=== PATIENT | female | born 1980 | race Caucasian/White ===

== ENCOUNTER 2018-11-29 14:29 | Emergency (ER) | payer OTHER ==
[~2018-11-29] VITALS: Ht 170.2 cm; Wt 72.6 kg
--- NOTE | 2018-11-29 15:20 | EKG ---
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 Electronically Signed On 12-01-2018 9:56:53 CDT by Deandre Rodriguez
[2018-11-29] MEDS ORDERED: ONDANSETRON PF 4 MG/2 ML VIAL. IV ONE (16:00)
[2018-11-29] MEDS ORDERED: MORPHINE SULFATE 4 MG/ML VIAL. IV ONE (16:00)
--- NOTE | 2018-11-29 16:04 | PHYS DOC ---
Past Medical History Past Medical History: GERD, Other Additional Past Medical Histor: CEREBRAL PALSY Past Surgical History: Tubal ligation, Other Additional Past Surgical Histo: GASTRIC SLEEVE Alcohol Use: None Drug Use: None Adult General Chief Complaint Chief Complaint: CHEST PAIN HPI HPI patient is a 38-year-old female who presents to the emergency department for evaluation. She states that yesterday she began experiencing some sharp central chest pain and some mid back pain, which acutely worsened earlier in the day today. The pain did radiate up towards her neck as well. She denies any numbness or weakness, or significant shortness of breath, but does report pain worse with certain position changes as well as movements. She denies any dizziness or lightheadedness, numbness or weakness. She states she did have some pain in her calves bilaterally couple of weeks ago while doing some physical activity, but this has resolved. He does not have any unilateral calf pain. She does not use contraceptive pills. Patient is PERC/Wells negative. HEART score zero. Review of Systems Review of Systems Constitutional: Denies fever or chills [] Eyes: Denies change in visual acuity, redness, or eye pain [] HENT: Denies nasal congestion or sore throat [] Respiratory: Denies cough or shortness of breath [] Cardiovascular: No additional information not addressed in HPI [] GI: Denies abdominal pain, nausea, vomiting, bloody stools or diarrhea [] : Denies dysuria or hematuria [] Musculoskeletal: Denies back pain or joint pain [] Integument: Denies rash or skin lesions [] Neurologic: Denies headache, focal weakness or sensory changes [] Endocrine: Denies polyuria or polydipsia [] All other systems were reviewed and found to be within normal limits, except as documented in this note. Current Medications Current Medications Current Medications Medications (Trade) Dose Ordered Sig/Ehsan Start Time Stop Time Status Last Admin Dose Admin Info (CONTRAST GIVEN -- Rx MONITORING) 1 each PRN DAILY PRN 11/29/18 16:45 12/01/18 16:44 Iohexol (Omnipaque 350 Mg/ml) 90 ml 1X ONCE 11/29/18 16:45 11/29/18 16:46 DC 11/29/18 16:52 90 ML Morphine Sulfate (Morphine Sulfate) 4 mg 1X ONCE 11/29/18 16:00 11/29/18 16:01 DC 11/29/18 16:00 4 MG Ondansetron HCl (Zofran) 4 mg 1X ONCE 11/29/18 16:00 11/29/18 16:01 DC 11/29/18 16:00 4 MG Allergies Allergies Allergies Coded Allergies Type Severity Reaction Last Updated Verified gabapentin Allergy Unknown 11/29/18 Yes hydrocodone Allergy Unknown 11/29/18 Yes Physical Exam Physical Exam PHYSICAL EXAM: CONSTITUTIONAL: Well developed, well nourished HEAD: normocephalic, atraumatic EENT: PERRL, EOMI. Conjunctivae normal color, sclerae non-icteric; moist mucous membranes. NECK: Supple, non-tender; no meningismus. LUNGS: Lungs CTA, breathing even and unlabored. Normal air movement. HEART: Regular rate and rhythm, no murmur CHEST: No deformity; non-tender , there is no reproducible tenderness to palpation to the chest wall or back. ABDOMEN: The abdomen is soft, and non-tender, no masses or bruits. EXTREM: Normal ROM; no deformity, no calf tenderness. Normal pulses palpable in all extremities. There is no pedal edema. SKIN: No rash; no diaphoresis NEURO: Alert; normal speech and cognition; CN's grossly intact; strength grossly intact without focal deficit. BACK: No CVA TTP. Current Patient Data Vital Signs Vital Signs Date Time Temp Pulse Resp B/P (MAP) Pulse Ox O2 Delivery O2 Flow Rate FiO2 11/29/18 16:00 16 11/29/18 14:30 98.6 79 129/82 (98) 100 Room Air 98.6 Lab Values Laboratory Tests Test 11/29/18 14:45 White Blood Count 5.7 x10^3/uL (4.0-11.0) Red Blood Count 4.42 x10^6/uL (3.50-5.40) Hemoglobin 11.0 g/dL (12.0-15.5) L Hematocrit 34.4 % (36.0-47.0) L Mean Corpuscular Volume 78 fL (79-100) L Mean Corpuscular Hemoglobin 25 pg (25-35) Mean Corpuscular Hemoglobin Concent 32 g/dL (31-37) Red Cell Distribution Width 15.6 % (11.5-14.5) H Platelet Count 286 x10^3/uL (140-400) Neutrophils (%) (Auto) 66 % (31-73) Lymphocytes (%) (Auto) 23 % (24-48) L Monocytes (%) (Auto) 7 % (0-9) Eosinophils (%) (Auto) 4 % (0-3) H Basophils (%) (Auto) 1 % (0-3) Neutrophils # (Auto) 3.8 x10^3uL (1.8-7.7) Lymphocytes # (Auto) 1.3 x10^3/uL (1.0-4.8) Monocytes # (Auto) 0.4 x10^3/uL (0.0-1.1) Eosinophils # (Auto) 0.2 x10^3/uL (0.0-0.7) Basophils # (Auto) 0.0 x10^3/uL (0.0-0.2) D-Dimer (Faviola) 0.55 ug/mlFEU (0.00-0.50) H Sodium Level 142 mmol/L (136-145) Potassium Level 3.6 mmol/L (3.5-5.1) Chloride Level 106 mmol/L (98-107) Carbon Dioxide Level 23 mmol/L (21-32) Anion Gap 13 (6-14) Blood Urea Nitrogen 10 mg/dL (7-20) Creatinine 0.9 mg/dL (0.6-1.0) Estimated GFR (Cockcroft-Gault) 70.8 BUN/Creatinine Ratio 11 (6-20) Glucose Level 88 mg/dL (70-99) Calcium Level 9.1 mg/dL (8.5-10.1) Total Bilirubin 0.8 mg/dL (0.2-1.0) Aspartate Amino Transferase (AST) 14 U/L (15-37) L Alanine Aminotransferase (ALT) 13 U/L (14-59) L Alkaline Phosphatase 69 U/L (46-116) Troponin I Quantitative < 0.017 ng/mL (0.000-0.055) RE-Soy-A-Type Natriuretic Peptide 42 pg/mL (0-124) Total Protein 7.6 g/dL (6.4-8.2) Albumin 4.1 g/dL (3.4-5.0) Albumin/Globulin Ratio 1.2 (1.0-1.7) Lipase 410 U/L (73-393) H Laboratory Tests 11/29/18 14:45 Laboratory Tests 11/29/18 14:45 EKG EKG [Normal sinus rhythm with a normal rate, normal axis, normal intervals, there are no acute ischemic ST/T changes.], Repeat EKG at 5:30 PM shows no changes. Radiology/Procedures Radiology/Procedures PROCEDURE: PORTABLE CHEST 1V EXAM: Chest, single view. HISTORY: Chest pain. COMPARISON: None. FINDINGS: A frontal view of the chest is obtained. There is no infiltrate, pleural effusion or pneumothorax. The heart is normal in size. IMPRESSION: No acute pulmonary finding. [PROCEDURE: CT ANGIOGRAPHY CHEST ABDOMEN CT ANGIOGRAPHY CHEST ABDOMEN Indication: CHEST AND BACK PAIN SINCE LAST NIGHT, EVAL FOR DISSECTION PER ORDER, [id number] 90ML, NO PRIORS Exposure: One or more of the following individualized dose reduction techniques were utilized for this examination: 1. Automated exposure control 2. Adjustment of the mA and/or kV according to patient size 3. Use of iterative reconstruction technique. TECHNIQUE: Standard imaging obtained before and after intravenous contrast. MIP reconstructions were obtained. Urgent interpretation reporting was requested. Comparison: None are available. CHEST: Mild pulsatility artifact at the ascending aorta. No evidence of aortic dissection. The proximal great vessels are patent. The main central pulmonary arteries are grossly patent. No significant lymph node enlargement. No pericardial effusion. Partially seen thyroid is symmetric. No pleural effusion. Lungs appear clear. Mild degenerative spondylosis. ABDOMEN: The aorta is nonaneurysmal. No evidence of dissection. The celiac axis and superior mesenteric artery are grossly patent. Renal arteries are patent. There may be an accessory renal artery arising from the distal aorta, just above the bifurcation, extending to the kidney. Inferior mesenteric artery is patent. Evaluation of solid viscera, and GI tract is limited by the protocol. Liver is not significantly enlarged. Spleen heterogeneity likely due to the bolus timing. Pancreas difficult to delineate from adjacent unopacified bowel, no definite abnormality. No adrenal mass. Kidneys demonstrate symmetric enhancement without hydronephrosis. Gallbladder surgically absent. No significant lymph node enlargement in the abdomen. No significant distention of abdominal bowel loops. Compression fracture deformity of what appears to be L1 with vertebroplasty cement. Mild retropulsion slightly indents the thecal sac particularly on the right. Note there may be transitional anatomy at the lumbosacral junction. IMPRESSION: No evidence of thoracic or abdominal aortic aneurysm or dissection.] Course & Med Decision Making Course & Med Decision Making Pertinent Labs and Imaging studies reviewed. (See chart for details) []5:55 PM: The patient's condition remains stable. I discussed test results with the patient, the uncertain etiology of her diagnosis, the need for close GI follow-up and return precautions. GI etiology is suspected. This might pancreatitis, although her lipase elevation is mild. She denies alcohol use. She states she has had heartburn in the past but stated that this felt different. Gastritis is another diagnostic possibility. Dragon Disclaimer Dragon Disclaimer This electronic medical record was generated, in whole or in part, using a voice recognition dictation system. Departure Departure Impression: Primary Impression: Atypical chest pain Disposition: 01 HOME, SELF-CARE Condition: STABLE Referrals: JOE MCCULLOUGH MD Patient Instructions: Acute Pancreatitis, Chest Pain (Nonspecific), Clear Liquid Diet, Gastritis, Adult Additional Instructions: Antacids, such as Maalox or Mylanta might help improve your symptoms if this is stomach related. It is important that you obtain close follow-up for further evaluation and diagnostic testing, as the exact etiology of her symptoms is unclear at this time. If symptoms persist or worsen, it is important that he return to the emergency department for further evaluation. Scripts Acetaminophen With Codeine (TYLENOL WITH CODEINE #3 TABLET) 1 Each Tablet 1 TAB PO PRN Q6HRS PRN for PAIN, #15 TAB Prov: ELIN BOYLE MD 11/29/18 ELIN BOYLE MD November 29, 2018 16:04
[2018-11-29 16:08] LABS: BASO % 1 % (0-3); EOS # 0.2 x10^3/uL (0.0-0.7); EOS % 4 % (0-3); HEMATOCRIT 34.4 % (36.0-47.0); LYMPH # 1.3 x10^3/uL (1.0-4.8); LYMPH % 23 % (24-48); MEAN CORPUSCULAR HEMOGLOBIN 25 pg (25-35); MEAN CORPUSCULAR HGB CONC 32 g/dL (31-37); MEAN CORPUSCULAR VOLUME 78 fL (79-100); MONO # 0.4 x10^3/uL (0.0-1.1); MONO % 7 % (0-9); NEUT # 3.8 x10^3uL (1.8-7.7); NEUT % 66 % (31-73); PLATELET COUNT 286 x10^3/uL (140-400); RED BLOOD COUNT 4.42 x10^6/uL (3.50-5.40); RED CELL DISTRIBUTION WIDTH 15.6 % (11.5-14.5); WHITE BLOOD COUNT 5.7 x10^3/uL (4.0-11.0)
[2018-11-29 16:23] LABS: CALCIUM 9.1 mg/dL (8.5-10.1); CREATININE 0.9 mg/dL (0.6-1.0); GFR 70.8; POTASSIUM 3.6 mmol/L (3.5-5.1)
[2018-11-29 16:28] LABS: ALBUMIN 4.1 g/dL (3.4-5.0); ALBUMIN/GLOBULIN RATIO 1.2 (1.0-1.7); TOTAL BILIRUBIN 0.8 mg/dL (0.2-1.0); TOTAL PROTEIN 7.6 g/dL (6.4-8.2)
--- NOTE | 2018-11-29 16:34 | RAD ---
EXAM: Chest, single view. HISTORY: Chest pain. COMPARISON: None. FINDINGS: A frontal view of the chest is obtained. There is no infiltrate, pleural effusion or pneumothorax. The heart is normal in size. IMPRESSION: No acute pulmonary finding. Electronically signed by: Geraldine Rodriguez MD (11/29/2018 4:30 PM) [place] [id number]
[2018-11-29] MEDS ORDERED: IOHEXOL 350 MG/ML 100 ML VIAL. IV ONE (16:45)
[2018-11-29] MEDS ORDERED: CONTRAST GIVEN. MC PRN (16:45)
[2018-11-29 17:32] VITALS: BP 99/63
--- NOTE | 2018-11-29 17:39 | RAD ---
CT ANGIOGRAPHY CHEST ABDOMEN Indication: CHEST AND BACK PAIN SINCE LAST NIGHT, EVAL FOR DISSECTION PER ORDER, [id number] 90ML, NO PRIORS Exposure: One or more of the following individualized dose reduction techniques were utilized for this examination: 1. Automated exposure control 2. Adjustment of the mA and/or kV according to patient size 3. Use of iterative reconstruction technique. TECHNIQUE: Standard imaging obtained before and after intravenous contrast. MIP reconstructions were obtained. Urgent interpretation reporting was requested. Comparison: None are available. CHEST: Mild pulsatility artifact at the ascending aorta. No evidence of aortic dissection. The proximal great vessels are patent. The main central pulmonary arteries are grossly patent. No significant lymph node enlargement. No pericardial effusion. Partially seen thyroid is symmetric. No pleural effusion. Lungs appear clear. Mild degenerative spondylosis. ABDOMEN: The aorta is nonaneurysmal. No evidence of dissection. The celiac axis and superior mesenteric artery are grossly patent. Renal arteries are patent. There may be an accessory renal artery arising from the distal aorta, just above the bifurcation, extending to the kidney. Inferior mesenteric artery is patent. Evaluation of solid viscera, and GI tract is limited by the protocol. Liver is not significantly enlarged. Spleen heterogeneity likely due to the bolus timing. Pancreas difficult to delineate from adjacent unopacified bowel, no definite abnormality. No adrenal mass. Kidneys demonstrate symmetric enhancement without hydronephrosis. Gallbladder surgically absent. No significant lymph node enlargement in the abdomen. No significant distention of abdominal bowel loops. Compression fracture deformity of what appears to be L1 with vertebroplasty cement. Mild retropulsion slightly indents the thecal sac particularly on the right. Note there may be transitional anatomy at the lumbosacral junction. IMPRESSION: No evidence of thoracic or abdominal aortic aneurysm or dissection. Electronically signed by: Natanael Vasquez MD (11/29/2018 5:37 PM) [facility]
[2018-11-29] MEDS ORDERED: ACET-704 PO (17:59)
[2018-11-29] MEDS ORDERED: HYDROmorphone 2 MG/ML VIAL IV ONE (18:15)
[2018-11-29] MEDS ORDERED: LIDO:MAALOX 1:1 20 ML SINGLE DOSE. SWSW ONE (18:15)
--- NOTE | 2018-11-30 06:53 | EKG ---
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
== END 2018-11-29 18:23 | disposition home or self-care (01) ==
LOC: ER 14:29
DX: R07.89 Other chest pain (principal); M54.6 Pain in thoracic spine; M54.2 Cervicalgia; K21.9 Gastro-esophageal reflux disease without esophagitis; Z98.51 Tubal ligation status; Z88.5 Allergy status to narcotic agent; Z88.8 Allergy status to other drugs, medicaments and biological substances
CPT/HCPCS: 36415; 71045; 71275; 74175; 80053; 83690; 83880; 84484; 85025; 85379; 93005; 96374; 96375; 99285; J1170; J2270; J2405; Q9967

== ENCOUNTER → 2020-05-01 | Outpatient (CLI) | payer OTHER, MEDICAID ==
[~2020-05-01] MED LIST: ACET-704 PO
--- NOTE | 2020-05-01 15:24 | KCIC ---
LUMBAR SPINE WO CONTRAST History: Reason: LOW BACK PAIN / Spl. Instructions: Prior vertebroplasty 2013 / History: Acute pain after a strain 2 weeks ago. Pain into RLE. Technique: Multiplanar, multi sequential MR imaging was performed of the lumbar spine. Comparison: None Findings: Transitional lumbosacral anatomy with sacralization of L5. L5-S1 is identified on axial series 6 image 18. Chronic L1 compression fracture status post kyphoplasty. Minimal retropulsion. No significant canal narrowing at this level. No acute fracture. Normal alignment. Conus terminates at the normal location. No evidence of nerve root clumping. L1-L2: Small disc bulge. Mild facet arthropathy. No canal or neuroforaminal narrowing. L2-L3: Minimal disc bulge. Moderate facet arthropathy. No canal or neuroforaminal narrowing. L3-L4: Small disc bulge. Moderate left greater than right facet arthropathy. No canal narrowing. Left subarticular recess narrowing with abutment of the descending L4 nerve root. Minimal bilateral neuroforaminal narrowing. L4-L5: Central disc protrusion with annular fissure. Moderate facet arthropathy, left greater than right. Bilateral subarticular recess narrowing with abutment of the descending L5 nerve roots, left greater than right. Minimal canal narrowing. Ligamentum flavum thickening. Middle bilateral neuroforaminal narrowing. L5-S1: Rudimentary disc. No canal or neuroforaminal narrowing. Impression: 1. Transitional lumbosacral anatomy with sacralization of L5. 2. Chronic L1 compression fracture status post kyphoplasty. 3. Multilevel lumbar spondylosis most prominent L3-L4 and L4-L5 with subarticular recess narrowing. Electronically signed by: Zack Fuchs DO (05/01/2020 3:21 PM) [id number]
== END ==
LOC: KCIC MRI 12:58
PROVIDERS: ATTEND Family Medicine
DX: M47.816 Spondylosis without myelopathy or radiculopathy, lumbar region (principal); M48.061 Spinal stenosis, lumbar region without neurogenic claudication; M48.56XA Collapsed vertebra, not elsewhere classified, lumbar region, initial encounter for fracture; Z98.1 Arthrodesis status
CPT/HCPCS: 72148

== ENCOUNTER 2020-05-27 07:31 | Emergency (ER) | payer MEDICAID, OTHER ==
[~2020-05-27] VITALS: Ht 170.2 cm; Wt 80.0 kg
[2020-05-27 08:00] VITALS: BP 136/65
--- NOTE | 2020-05-27 08:02 | PHYS DOC ---
Past Medical History Past Medical History: GERD, Other Additional Past Medical Histor: CEREBRAL PALSY Past Surgical History: Tubal ligation, Other Additional Past Surgical Histo: GASTRIC SLEEVE Smoking Status: Never Smoker Alcohol Use: None Drug Use: None General Adult EDM: Chief Complaint: FINGER INJURY HPI: HPI: Patient is a 40-year-old female who presents to the ED after jamming her finger between window and nightstand around hours 3 prior to arrival. Took 500mg naproxen and states that has improved her pain, and is aggravated by movement. Denies any radiation of pain. Pain rated at a 5/10. States that her bandage she used to wrap the finger had some blood on it but there is no obvious laceration. Review of Systems: Review of Systems: Constitutional: Denies fever or chills Eyes: Denies redness or eye pain HENT: Denies nasal congestion or sore throat Respiratory: Denies cough or shortness of breath Cardiovascular: Denies chest pain or palpitations GI: Denies abdominal pain, nausea, or vomiting : Denies dysuria or hematuria Musculoskeletal: Reports finger pain; Denies back pain or joint pain Integument: Denies rash or skin lesions Neurologic: Denies headache, focal weakness or sensory changes Complete systems were reviewed and found to be within normal limits, except as documented in this note. Allergies: Allergies: Allergies Coded Allergies Type Severity Reaction Last Updated Verified gabapentin Allergy Unknown 11/29/18 Yes hydrocodone Allergy Unknown 11/29/18 Yes Physical Exam: PE: Constitutional: Well developed, well nourished, no acute distress, non-toxic appearance HENT: Normocephalic, atraumatic Eyes: PERRL, EOMI, conjunctiva normal, no discharge Neck: Normal range of motion, no tenderness, supple Lungs & Thorax: No respiratory distress, equal chest rise and fall Abdomen: Soft, no tenderness Skin: Warm, dry, no erythema, no rash Back: No tenderness, no CVA tenderness Extremities: Mild swelling on right 5th digit with pain on palpation and movement, no obvious bony deformity or laceration Neurologic: Alert and oriented X 3, normal motor function, normal sensory function, no focal deficits noted Psychologic: Affect normal, judgment normal EKG: EKG: [] Radiology/Procedures: Radiology/Procedures: PROCEDURE: HAND RIGHT 3V Right hand 3 views. HISTORY: Fifth digit pain, crush injury 3 views were taken of the right hand. There is not evidence of an acute fracture or osseous abnormality. No fractures noted in the right fifth finger. IMPRESSION: 1. Negative right hand. Electronically signed by: Jimenez Resendiz MD (05/27/2020 8:12 AM) [id number] Course & Med Decision Making: Course & Med Decision Making Pertinent Imaging studies reviewed. (See chart for details) Patient is a 40 y/o female who presents to the ED for right 5th digit finger pain. She currently has pain under control after taking Naproxen. Finger x-ray negative. Patient stable for discharge with outpatient follow-up with PCP. Discussed findings and plan with patient, who acknowledges understanding and agreement. Dragon Disclaimer: Dragon Disclaimer: This electronic medical record was generated, in whole or in part, using a voice recognition dictation system. Splinting Splinting : Location: Right 5th finger Pre-Made Type: metal Pre-Proc Neuro Vasc Exam: normal Post-Proc Neuro Vasc Exam: normal, unchanged from pre-exam Departure Departure Impression: Primary Impression: Crushing injury of finger of right hand Disposition: 01 DC HOME SELF CARE/HOMELESS Condition: STABLE Referrals: JAYCEE SAMUELS (PCP) Patient Instructions: Crush Injury, Fingers or Toes, Gynt-ef-Isac Additional Instructions: Use over the counter Tylenol and/or Ibuprofen for pain or discomfort. Wear splint for protection of finger for next 3-5 days. ICE area 20 min on then leave off next 20 mins for next few days. JOE SOTO DO May 27, 2020 08:01
--- NOTE | 2020-05-27 08:14 | RAD ---
Right hand 3 views. HISTORY: Fifth digit pain, crush injury 3 views were taken of the right hand. There is not evidence of an acute fracture or osseous abnormality. No fractures noted in the right fifth finger. IMPRESSION: 1. Negative right hand. Electronically signed by: Jimenez Resendiz MD (05/27/2020 8:12 AM) [id number]
== END 2020-05-27 08:50 | disposition home or self-care (01) ==
LOC: ER 07:31
DX: S67.196A Crushing injury of right little finger, initial encounter (principal); K21.9 Gastro-esophageal reflux disease without esophagitis; Z88.5 Allergy status to narcotic agent; Z88.8 Allergy status to other drugs, medicaments and biological substances; W23.0XXA Caught, crushed, jammed, or pinched between moving objects, initial encounter; Y93.89 Activity, other specified; Y92.89 Other specified places as the place of occurrence of the external cause; Y99.8 Other external cause status
CPT/HCPCS: 29130; 73130; 99283

== ENCOUNTER 2020-10-16 04:21 | Emergency (ER) | payer OTHER ==
[~2020-10-16] VITALS: Ht 170.2 cm; Wt 82.7 kg
[2020-10-16 04:30] VITALS: BP 153/70
--- NOTE | 2020-10-16 04:48 | PHYS DOC ---
Past Medical History Past Medical History: GERD, Other Additional Past Medical Histor: CEREBRAL PALSY Past Surgical History: Tubal ligation, Other Additional Past Surgical Histo: GASTRIC SLEEVE Smoking Status: Never Smoker Alcohol Use: None Drug Use: None General Adult EDM: Chief Complaint: LOWER EXT PAIN HPI: HPI: Patient is a 40 year old occasion female with past medical history of bronch itis, chronic back pain, and GERD, presents for 3-day history of left toe pain. Patient reports that on Tuesday she felt a sharp pain localized around the base of her left great toe. Patient never had similar issues before. She denies any recent injuries or trauma or increase in physical activity level that might have triggered the pain. She reports that the pain was at 0-1/10 in severity at rest, the pain will increase to 4 out of 10 when the toe was passively moved. When she was actively walking the pain was at 7 out of 10 in severity. Patient took Tylenol for long-term management of her back pain. She did not notice to Tylenol does anything to the left toe pain. She has not tried other medications due to concerns for GI distress because patient had a gastric sleeve procedure. Patient denies any fever, chills, chest pain, shortness of air, change in vision or hearing, numbness and tingling in her hands and feet. Patient is the main historian. Review of Systems: Review of Systems: Review of systems: Constitutional symptoms- No fever, no chills. Eyes- No Discharge, No Visual Loss Respiratory symptoms- No shortness of breath, No wheezing, No Dyspnea on Exertion Cardiovascular Systems; No chest pain, No Palpitations, No syncope Gastrointestinal symptoms: NO abdominal pain, no nausea, no vomiting or diarrhea. Genitourinary symptoms: No dysuria. Musculoskeletal symptoms: Chronic low back pain, sharp pain at the left great toe base. NEUROLOGICAL Symptoms: No headache, no generalized weakness; No focal Weakness Heart Score: C/O Chest Pain: No Risk Factors: Risk Factors: DM, Current or recent (<one month) smoker, HTN, HLP, family history of CAD, obesity. Risk Scores: Score 0 - 3: 2.5% MACE over next 6 weeks - Discharge Home Score 4 - 6: 20.3% MACE over next 6 weeks - Admit for Clinical Observation Score 7 - 10: 72.7% MACE over next 6 weeks - Early Invasive Strategies Allergies: Allergies: Allergies Coded Allergies Type Severity Reaction Last Updated Verified aspirin Allergy Severe 05/27/20 Yes morphine Allergy Mild 10/16/20 Yes adhesive tape Allergy Unknown 05/27/20 Yes gabapentin Allergy Unknown 11/29/18 Yes hydrocodone Allergy Unknown 11/29/18 Yes latex Allergy Unknown 05/27/20 Yes Physical Exam: PE: General: alert, no acute distress. Skin: warm, dry and intact. Head:: Normocephalic, atraumatic. Neck: Trachea midline. Eyes: EOMI, Normal conjunctiva, No drainage CARDIOVASCULAR: Regular rate and rhythm RESPIRATORY: No respiratory distress Back: Full range of motion. MUSCULOSKELETAL: Sharp pain elicited by passive distraction force of the left great toe. No edema or erythema was observed or palpated at the left great toe base. GASTROINTESTINAL: Abdomen soft without rebound or guarding. NEUROLOGICAL: Alert and noted to person, place and time. No neurological deficits observed Psychiatric: Cooperative. Normal judgment EKG: EKG: [] Radiology/Procedures: Radiology/Procedures: [] Impression: X-ray wet read no acute fractures or dislocation Course & Med Decision Making: Course & Med Decision Making Pertinent Labs and Imaging studies reviewed. (See chart for details) [] Patient was evaluated for chief complaint. Work-up consisted of radiologic imaging. X-ray reviewed wet read no acute fractures or dislocation. Patient was instructed to take Tylenol and/or her prescription diclofenac as needed for pain. Patient referred to podiatry. Lida Disclaimer: Lida Disclaimer: This electronic medical record was generated, in whole or in part, using a voice recognition dictation system. Departure Departure Impression: Primary Impression: Toe pain Disposition: 01 DC HOME SELF CARE/HOMELESS Condition: STABLE Referrals: JAYCEE SAMUELS (PCP) VAMSI CARLSON DPM Patient Instructions: Toe Injuries and Amputations, Turf Toe with Rehab- [facility] Scripts Tramadol Hcl (ULTRAM) 50 Mg Tablet 50 MG PO Q4HRS PRN for PAIN, #14 TAB 0 Refills Prov: RANDY AUGUST DO 10/16/20 RANDY AUGUST DO Oct 16, 2020 04:47
[2020-10-16] MEDS ORDERED: TRAM-48 PO (05:01)
--- NOTE | 2020-10-16 05:07 | RAD ---
Left toes 3 views: Reason for examination: Left toe pain. No acute fracture or dislocation is seen. The bone density is normal. No abnormal periosteal reaction is seen. Joint spaces are maintained. IMPRESSION: No acute bony abnormality in the left toes. Electronically signed by: Ana Paula Rice MD (10/16/2020 5:05 AM) [facility]
== END 2020-10-16 05:10 | disposition home or self-care (01) ==
LOC: ER 04:21
DX: M79.675 Pain in left toe(s) (principal); M54.9 Dorsalgia, unspecified; G89.29 Other chronic pain; K21.9 Gastro-esophageal reflux disease without esophagitis; Z98.51 Tubal ligation status; Z98.890 Other specified postprocedural states; Z88.6 Allergy status to analgesic agent; Z88.5 Allergy status to narcotic agent; Z88.8 Allergy status to other drugs, medicaments and biological substances; Z91.040 Latex allergy status
CPT/HCPCS: 73660; 99283

== ENCOUNTER → 2020-11-03 | Outpatient (CLI) | payer OTHER, MEDICAID ==
[2020-10-16 04:30] VITALS: BP 153/70
[~2020-11-03] MED LIST changes: +ACET500T68 PO; +ALBU2.5V8 IH; +DICL75TA PO; +IBUP-1027 PO; +IOHEXOL 180 MG/ML 10 ML VIAL. ONE; +METH-38 PO; +TRAM-48 PO; +methylPREDNISolone ACETATE 40 MG/ML VIAL. ONE; +methylPREDNISolone ACETATE 80 MG/ML VIAL. ONE
--- NOTE | 2020-11-03 12:24 | PDOC1 ---
INITIAL PAIN CONSULT DATE OF SERVICE: DOS: DATE: 11/03/20 TIME: 12:17 CHIEF COMPLAINT: Chief Complaint: Low back and bilateral lower extremity pain HISTORY OF PRESENT ILLNESS: 40-year-old female presents with history of pain low back and bilateral lower extremities right greater than left. Patient reports pain low back and bilateral lower extremities right greater than left for many years about 8 years or so not the result of any specific injury or accident that she is aware but has had increasing pain over the time noted in the low back and lower extremities. Patient reports is in the back rating the posterior gluteus posterior lateral thighs on anterior thighs anteromedial thighs medial lower leg as well as the posterior calf as well patient reports a throbbing pain that shooting in the back constant and aching in the back can be radiating the lower extremities and aching in the legs as well sometimes just with standing or walking as she does get some numbness especially in her left foot patient reports it wakes her from sleep at least once or twice a night does not affect her bowel bladder control but does affect her ability to walk when it is at its worst. Patient currently not use any assistive devices to ambulate. Patient rates her disability rating 0-10 10 being the worst is a 7 with family home responsibilities and social activities life support activities 5 with recreation sexual behavior 8 with occupational activities 4 with self-care activities. Patient have MRI scan of the lumbar spine showing L3-4 small disc bulge with m oderate left greater than right facet arthropathy and left subarticular recess narrowing with abutment of the descending L4 nerve root. L4-5 shows central protrusion with annular fissure narrowing with abutment of the descending L5 nerve roots left greater than right with minimal canal narrowing. Patient reports no overt motor loss of the lower extremities but significant fatigab ility with ambulation and standing. PAST MEDICAL HISTORY: PMH: Chronic bronchitis, cerebral palsy with weakness in the right lower extremity, dizziness, headaches, weight loss after gastric sleeve, UTIs PREVIOUS SURGERIES: Past Surgical Hx: Vertebroplasty 2012, cholecystectomy 2008, gastric sleeve 2014, sinus surgery 2014, tubal ligation, dental surgeries, knee surgery x2 CURRENT MEDICATIONS: Current Meds: Active Scripts Medications Dose Route/Sig Max Daily Dose Days Date Category Proair Hfa Inhaler (Albuterol Sulfate) 8.5 Gm Hfa.aer.ad 2 Puff IH PRN Q4-6HRS PRN 21 11/03/20 Reported Ibuprofen 400 Mg Tablet 400 Mg PO PRN Q6HRS PRN 11/03/20 Reported Acetaminophen 500 Mg Tablet 1 Tab PO PRN Q6HRS PRN 15 11/03/20 Reported Diclofenac Sodium 75 Mg Tablet.dr 1 Tab PO BID 11/03/20 Reported Robaxin-750 (Methocarbamol) 750 Mg Tablet 1 Tab PO TID PRN 30 11/03/20 Reported ALLERGIES; Allergies: Coded Allergies: aspirin (Verified Allergy, Severe, 05/27/20) morphine (Verified Allergy, Mild, 10/16/20) adhesive tape (Verified Allergy, Unknown, 05/27/20) gabapentin (Verified Allergy, Unknown, 11/29/18) hydrocodone (Verified Allergy, Unknown, 11/29/18) latex (Verified Allergy, Unknown, 05/27/20) FAMILY HISTORY: Family Hx: COPD, diabetes, thyroid disease, anxiety depression, alcoholism, cancers, attention deficit with hyperactivity disorder SOCIAL HISTORY: Social Hx: Patient does not dieter alcohol does not smoke not use any illegal illicit recreational drugs patient is single lives locally has 1 child living at home age 11, 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 REVIEW OF SYSTEMS: ROS: Positive for those items mentioned in history of present illness, all systems are reviewed, otherwise negative ,and are complete full and well-documented on patient's chart. PHYSICAL EXAM: VS: Blood pressure is 130/72 pulse 70 respirations 18 temperature 97.9 F height is 67.2 inches weight is 176 pounds PE: PHYSICAL EXAMINATION: GENERAL: The patient is awake, alert, oriented, appropriate, very pleasant demea nor HEENT: Shows normocephalic, atraumatic. Extraocular movements are intact and symmetrical. Oral cavity: Mucous membranes moist and pink. Dentition is intact. NECK: Shows anterior throat supple without palpable lymphadenopathy noted. Swallow reflex symmetrical. CHEST: Shows normal on inspection. Breath sounds are clear bilaterally, no rales or rhonchi. HEART: Shows S1, S2 clear. No murmurs auscultated. ABDOMEN: Soft, nontender, nondistended, obese. No palpable organomegaly is noted. No rebound or guarding demonstrated. BACK: Shows spine grossly in the midline. Normal-appearing cervical lordotic curvature. There is slightly increased thoracic kyphosis, some minor flattening of the lumbar lordotic curvature. Lumbar paraspinous muscles show symmetrical on inspection, on palpation shows some moderate tenderness diffusely throughout the upper, middle and lower distribution of the paraspinous muscles bilaterally and also into the lower thoracic paraspinous musculature, firm and tender, but without specific trigger points, without radiation of pain. The patient has good rotational motion of the lumbar spine, both laterally as well as extension and flexion without significant difficulty. No tenderness over the spinous processes, sacrum or sacroiliac regions. EXTREMITIES: Lower extremities show deep tendon reflexes 2+ in the patellar and tendo calcaneus tendons. Motor exam is 4 on a scale of 5 with right dorsiflexion, extension, quadriceps and hamstring flexion and 5/5 on the left. Peripheral pulses are 1+ posterior tibial. No peripheral edema is noted bilaterally. Lower extremities are warm and dry to touch, equal in color and appearance. The patient is able to stand, stand on her toes but this is balance of putting all her weight on her right leg but walks with a slight favoring gait favoring the right lower extremity not use any assistive device such as canes or walkers to ambulate. SKIN: Shows warm and dry, good turgor. No edema. No sores, rashes or bruising throughout. IMPRESSION: Impression: 40-year-old female with long history of low back bilateral lower extremity pain and radicular fashion MRI scan lumbar spine as noted Chronic bronchitis History of cerebral palsy with right sided weakness Plan: Options were discussed with the patient including conservative medical management physical therapies interventional take. Patient would like to pursue interventional techniques. We discussed a lumbar epidural steroid issue using descriptions as well as anatomical models to describe the procedure. Risks were discussed including but not limited to: Bleeding, infection, possibility of epidural hematoma and subsequent neurological compromise, dural puncture, headaches, spinal cord and/or nerve damage, side effects of steroid medication, and poor results regarding pain control. Patient understands and wished to proceed. Patient will return to clinic in approximate 2 weeks for follow-up, was counseled as return appointment, activity level, and side effects to be aware of. Procedure is lumbar epidural steroid injection under local anesthetic using sterile prep and drape at the L4-5 level using C-arm fluoroscopic guidance in both AP and lateral views medications injected is 120 mg Depo-Medrol + 10 mL preservative-free normal saline and 2 mL contrast- condition at discharge is stable patient tolerated procedure well had no complications. SANDRA MA MD Nov 03, 2020 12:24
== END | disposition home or self-care (01) ==
LOC: PNCL 10:52
PROVIDERS: ATTEND Anesthesiology
DX: M54.5 Low back pain (principal); M79.605 Pain in left leg; M79.604 Pain in right leg; G80.9 Cerebral palsy, unspecified; J42 Unspecified chronic bronchitis; Z87.440 Personal history of urinary (tract) infections; Z90.49 Acquired absence of other specified parts of digestive tract; Z98.51 Tubal ligation status; Z98.890 Other specified postprocedural states; Z82.49 Family history of ischemic heart disease and other diseases of the circulatory system; Z83.3 Family history of diabetes mellitus; Z91.040 Latex allergy status; Z88.6 Allergy status to analgesic agent; Z88.8 Allergy status to other drugs, medicaments and biological substances; Z79.899 Other long term (current) drug therapy
CPT/HCPCS: 62323; J1030; J1040; Q9965

== ENCOUNTER → 2020-11-19 | Outpatient (CLI) | payer OTHER, MEDICAID ==
--- NOTE | 2020-11-19 11:42 | PDOC4 ---
PROCEDURE Procedure Patient was consented for lumbar epidural steroid injection. Risks were dis cussed including but not limited to: Bleeding, infection, possibility of epidural hematoma and subsequent neurological compromise, dural puncture, headaches, spinal cord and/or nerve damage, side effects of steroid medication, and poor results regarding pain control. Patient understands and wished to proceed. Procedure is lumbar epidural steroid injection under local anesthetic using sterile prep and drape at the L4-5 level using C-arm fluoroscopic guidance in both AP and lateral views medications injected is 120 mg Depo-Medrol + 10 mL preservative-free normal saline and 2 mL contrast- condition at discharge is stable patient tolerated procedure well had no complications. SANDRA MA MD Nov 19, 2020 11:42
--- NOTE | 2020-11-19 11:42 | PDOC ---
Progress Note - Pain Clinic Date of Service: DOS: DATE: 11/19/20 TIME: 11:39 Diagnosis: Dx: Lumbar radiculopathy with lumbar degenerative disc disease History or Present Illness: HPI: 40-year-old female returns follow-up status post lumbar strain x1 last seen October patient reports she did very well about 70% improvement overall back till she fell about a week ago and kayla her low back with pain returning in the low back but now more on the left side and the right posterior gluteus posterior lateral thigh anterior thigh medial thigh patient reports is aching and tingling describes as shooting in the leg burning in the back cramping and stabbing in the back as well on and off in intensity. Prior to her fall patient reports doing much better with distance walking doing household activities work activities sleeping better sitting standing with greater ease and comfort also traveling with greater ease patient reports her pain is now a 7 on scale 10 is worse with the past week for an average 1 its least and is a 4 today. Patient reports no new motor or sensory deficits no new bowel or bladder incontinence or other complaints. Physical Exam: VS: Blood pressure 112/74 pulse 68 respirations 16 temperature 98.1 F weight is 176 pounds PE: PHYSICAL EXAMINATION: GENERAL: The patient is awake, alert, oriented, appropriate, very pleasant demeanor HEENT: Shows normocephalic, atraumatic. Extraocular movements are intact and symmetrical. Oral cavity: Mucous membranes moist and pink. Dentition is intact. NECK: Shows anterior throat supple without palpable lymphadenopathy noted. Swallow reflex symmetrical. CHEST: Shows normal on inspection. Breath sounds are clear bilaterally. HEART: Shows S1, S2 clear. No murmurs auscultated. ABDOMEN: Soft, nontender, nondistended, obese. No palpable organomegaly is noted. No rebound or guarding demonstrated. BACK: Shows spine grossly in the midline. Normal-appearing cervical lordotic curvature. There is slightly increased thoracic kyphosis, some minor flattening of the lumbar lordotic curvature. Lumbar paraspinous muscles show symmetrical on inspection, on palpation shows some moderate tenderness diffusely throughout the upper, middle and lower distribution of the paraspinous muscles without specific trigger points, without radiation of pain. The patient has good rotational motion of the lumbar spine, both laterally as well as extension and flexion without significant difficulty. EXTREMITIES: Lower extremities show deep tendon reflexes 2+ in the patellar and tendo calcaneus tendons. Motor exam is 4 on a scale of 5 with right dorsiflexion, extension, quadriceps and hamstring flexion and 5/5 on the left. Peripheral pulses are 1+ posterior tibial. No peripheral edema is noted bilaterally. Lower extremities are warm and dry to touch, equal in color and appearance. SKIN: Shows warm and dry, good turgor. No edema. No sores, rashes or bruising throughout. Procedure: Procedure: Options discussed with the patient. Patient chart was reviewed as her current medication regimen updated current review of systems updated today as well. We will proceed with a second in a series lumbar epidural steroid injection today with fluoroscopic guidance. Risks were discussed including but not limited to: Bleeding, infection, possibility of epidural hematoma and subsequent neurological compromise, dural puncture, headaches, spinal cord and/or nerve damage, side effects of steroid medication, and poor results regarding pain control. Patient understands and wished to proceed. Patient return to clinic in approximate 2 weeks for follow-up, was counseled as to return appointment activity level and side effects to be aware of. Medication Injected: Med Injected: Procedure is lumbar epidural steroid injection under local anesthetic using sterile prep and drape at the L4-5 level using C-arm fluoroscopic guidance in both AP and lateral views medications injected is 120 mg Depo-Medrol + 10 mL preservative-free normal saline and 2 mL contrast- condition at discharge is stable patient tolerated procedure well had no complications. Condition at Discharge: Condition at Discharge: Condition at discharge stable, patient noted the procedure well and had no complications. SANDRA MA MD Nov 19, 2020 11:42
== END | disposition home or self-care (01) ==
LOC: PNCL 10:52
PROVIDERS: ATTEND Anesthesiology
DX: M51.16 Intervertebral disc disorders with radiculopathy, lumbar region (principal); Z79.899 Other long term (current) drug therapy; Z91.040 Latex allergy status; Z88.6 Allergy status to analgesic agent; Z88.8 Allergy status to other drugs, medicaments and biological substances
CPT/HCPCS: 62323; J1030; J1040; Q9965

== ENCOUNTER 2021-01-28 06:59 | Emergency (ER) | payer OTHER, MEDICAID ==
[~2021-01-28] VITALS: Ht 170.2 cm; Wt 83.1 kg
[~2021-01-28 06:59] MED LIST changes: -IOHEXOL 180 MG/ML 10 ML VIAL. ONE; -methylPREDNISolone ACETATE 40 MG/ML VIAL. ONE; -methylPREDNISolone ACETATE 80 MG/ML VIAL. ONE
[2021-01-28 07:12] VITALS: BP 134/80
[2021-01-28] MEDS ORDERED: METOCLOPRAMIDE HCL 10 MG/2 ML VIAL. IVP ONE (07:30)
[2021-01-28] MEDS ORDERED: IV NORMAL SALINE 1000ML BAG 1,000 ML IV ONE (07:30)
[2021-01-28] MEDS ORDERED: PROCHLORPERAZINE 10 MG/2 ML VIAL. IV ONE (07:30)
[2021-01-28] MEDS ORDERED: DEXAMETHASONE SOD PHOS 20 MG/5 ML VIAL. IV ONE (07:30)
--- NOTE | 2021-01-28 08:15 | PHYS DOC ---
Past Medical History Past Medical History: Bronchitis, GERD, Other Additional Past Medical Histor: CEREBRAL PALSY, slight scoliosis, chronic sinusitis, adhd,seasonal allergie Past Surgical History: Cholecystectomy, Tubal ligation, Other Additional Past Surgical Histo: GASTRIC SLEEVE, facial surg, sinus surg, R heel cord surg, lumbar surg Smoking Status: Never Smoker Alcohol Use: None Drug Use: None General Adult EDM: Chief Complaint: HEADACHE HPI: HPI: 40-year-old female past medical history of cerebral palsy in the right side, scoliosis and L4 vertebroplasty with compression fracture, and history of chronic sinusitis presents to the ED with complaints of intermittent, waxing and waning, left sided facial pressure for the past 7 to 8 days with associated headache described as " at the base of my skull radiating down my shoulders." Some relief with Flonase, Sudafed, Zyrtec nad ibuprofen. Reports history of sinus disease in 2015, this is the first significant flareup of her sinuses. Review of Systems: Review of Systems: Constitutional: Denies fever or chills. [] Eyes: Denies change in visual acuity. [] HENT: Denies nasal congestion or sore throat. [] Respiratory: Denies cough or shortness of breath. [] Cardiovascular: Denies chest pain or edema. [] GI: Denies nausea, vomiting, Musculoskeletal: Denies back pain or joint pain. [] Integument: Denies rash or diaphoresis Neurologic: Denies neck pain, focal weakness or sensory changes. [] Endocrine: Denies polyuria or polydipsia. [] Lymphatic: Denies swollen glands. [] Psychiatric: Denies depression or anxiety. [] Heart Score: C/O Chest Pain: No Risk Factors: Risk Factors: DM, Current or recent (<one month) smoker, HTN, HLP, family history of CAD, obesity. Risk Scores: Score 0 - 3: 2.5% MACE over next 6 weeks - Discharge Home Score 4 - 6: 20.3% MACE over next 6 weeks - Admit for Clinical Observation Score 7 - 10: 72.7% MACE over next 6 weeks - Early Invasive Strategies Current Medications: Current Medications Medications (Trade) Dose Ordered Sig/Ehsan Start Time Stop Time Status Last Admin Dose Admin Dexamethasone Sodium Phosphate (Decadron) 10 mg 1X ONCE 01/28/21 07:30 01/28/21 07:31 DC 01/28/21 07:51 10 MG Metoclopramide HCl (Reglan Vial) 10 mg 1X ONCE 01/28/21 07:30 01/28/21 07:31 DC 01/28/21 07:45 10 MG Prochlorperazine Edisylate (Compazine) 10 mg 1X ONCE 01/28/21 07:30 01/28/21 07:31 DC 01/28/21 07:49 10 MG Sodium Chloride 1,000 ml @ 1,000 mls/hr 1X ONCE 01/28/21 07:30 01/28/21 08:29 01/28/21 07:45 1,000 MLS/HR Allergies: Allergies: Allergies Coded Allergies Type Severity Reaction Last Updated Verified aspirin Allergy Severe ANAPHYLAXIS 01/28/21 Yes adhesive tape Allergy Intermediate SWELLING HIVES 01/28/21 Yes latex Allergy Intermediate RASH 01/28/21 Yes hydrocodone Adverse Reaction Intermediate N/V 01/28/21 Yes gabapentin Adverse Reaction Mild WEIRD FEELING 01/28/21 Yes morphine Adverse Reaction Mild "WEIRD FEELING" 01/28/21 Yes Physical Exam: PE: Constitutional: sounds congested, uncomfortable but nontoxic appearing, afebrile HENT: Normocephalic, atraumatic, nasal voice, left frontal and maxillary sinus pressure Eyes: PERRLA, EOMI, conjunctiva normal, no discharge. Neck: Normal range of motion, supple, no nuchal rigidity or meningismus Cardiovascular: S1/2 present, regular rhythm Lungs & Thorax: Speaking in full sentences, bilateral equal chest rise, no tachypnea or increased work of breathing\\ Skin: Warm, dry, Extremities: No tenderness, no cyanosis, Neurologic: Alert and oriented X 3, normal motor function, normal sensory function, no focal deficits noted. [] Psychologic: Affect normal, judgement normal, mood normal. [] Current Patient Data: Labs: Laboratory Tests Test 01/28/21 07:43 POC Urine HCG, Qualitative Hcg negative (Negative) Vital Signs: Vital Signs Date Time Temp Pulse Resp B/P (MAP) Pulse Ox O2 Delivery O2 Flow Rate FiO2 01/28/21 07:12 98.9 77 16 134/80 (98) 100 Room Air 98.9 EKG: EKG: [] Radiology/Procedures: Radiology/Procedures: IMAGING REPORT Signed PATIENT: ISRAEL LEVINE ACCOUNT: [id number] : 1980 LOCATION: ER AGE: 40 SEX: F EXAM STATUS: REG ER ORD. PHYSICIAN: FIDEL SHEN DO REASON: sinus pressure +n/V PROCEDURE: CT HEAD AND MAXILLOFACIAL WO PQRS Compliance Statement: One or more of the following individualized dose reduction techniques were utilized for this examination: 1. Automated exposure control 2. Adjustment of the mA and/or kV according to patient size 3. Use of iterative reconstruction technique CT head and maxillofacial without contrast 01/28/2021 8:04 AM INDICATION: Sinus pressure, nausea and vomiting. COMPARISON: None available TECHNIQUE: Multiple axial CT images of the head were obtained from skull base through the vertex without intravenous contrast. Multiple axial CT images of the maxillofacial structures were obtained without intravenous contrast. Coronal and sagittal reformats are provided. FINDINGS: Ventricles, sulci and basal cisterns are within normal limits. There is no hydrocephalus. Galvin-white matter differentiation is normal. There is no acute intracranial hemorrhage. There is no mass, mass effect or midline shift. Posterior fossa is normal in appearance. Osseous orbits are intact. Globes are spherical and contour. There is no lens dislocation. Extraocular muscles are intact. No intraconal or extraconal mass is identified. Skull base is intact. Nasal bones are intact. There is near complete opacification of the right frontal sinus. There is moderate mucosal thickening of the left frontal sinus. There is occlusion of the frontoethmoidal recess bilaterally. There is complete opacification of the ethmoid air cells with suspected osseous erosion. Bilateral maxillary antrostomy changes are suspected with infundibulectomy and uncinectomy. There is near complete opacification of the right maxillary sinus. Moderate mucosal thickening of the left maxillary sinus with near complete opacification. Right sphenoid sinus is completely opacified. Moderate mucosal thickening of the left maxillary sinus with opacification of the lateral recess of the sphenoid sinuses bilaterally. No erosive changes of the skull base. There is minimal periosteal thickening along the lateral aspect of the right maxillary sinus. No definite osseous erosions are identified. Pterygoid plates are intact. Temporomandibular joints are well aligned. Mastoid air cells are well aerated. Middle ear cavities are well aerated. Visualized nasopharynx and oropharynx are intact. Soft tissues are normal. Maxilla and mandible are intact. Periapical lucency is identified involving the left maxillary central and lateral incisor. IMPRESSION: 1. No acute intracranial hemorrhage. No findings to suggest vasogenic edema. 2. No acute fracture of the maxillofacial structures. There is advanced centimeters mucosal inflammatory changes of the paranasal sinuses as described in detail above. No osseous erosion. Findings status post bilateral maxillary antrostomy, infundibulectomy and uncinectomy. 3. Periapical lucency identified involving the left maxillary central and lateral incisor. Consideration may be given for radicular cyst versus periapical abscess. Electronically signed by: Yara Richards MD (01/28/2021 8:30 AM) [facility] DICTATED and SIGNED BY: YARA RICHARDS MD DATE: 01/28/21 [id number] 0 Course & Med Decision Making: Course & Med Decision Making Pertinent Labs and Imaging studies reviewed. (See chart for details) Concern for acute on chronic sinusitis in the setting of chronic headache, relieved with medications in ED. will discharge home with antibiotics. Will discharge home with strict ED return precautions were given for neurologic deficits, facial palsies, fever, severe headache or nuchal rigidity. Encouraged urgent outpatient follow-up with PMD and ENT. Life-threatening processes were considered but are low suspicion at this time, given history, physical exam and ED workup. Pt was educated on all prescription medications and adverse effects. All patient's questions were answered and pt was stable at time of discharge. Life/limb-threatening differential includes but is not limited to, meningitis, encephalitis, intracranial hemorrhage, obstructive hydrocephaly, CVA, carbon mo noxide poisoning, cerebral or cavernous venous thrombosis, hypertensive emergency, preeclampsia, giant cell arteritis, glaucoma, carotid or vertebral artery dissection, superior vena cava syndrome, infection, optic neuritis, or space-occupying lesions. I spoken with the patient and her caregivers. I explained the patient's condition, diagnoses and treatment plan based on the information available to me at this time. I have answered the patient and her caregiver's questions and addressed any concerns. The patient and her caregivers have a good understanding of patient's diagnosis, condition and treatment plan as can be expected at this point. Vital signs have been stable. Patient's condition is stable and appropriate for discharge from the emergency department. Patient will pursue further outpatient evaluation with primary care physician or other designated or consulting physician as outlined in the discharge instructions. The patient and/or caregivers are agreeable to this plan of care and follow-up instructions have been explained in detail. The patient and/or caregivers have received these instructions in written form and have expressed an understanding of the discharge instructions. The patient and/or caregivers are aware that any significant change of condition or worsening of symptoms should prompt immediate return to this or the closest emergency department or call to [facility]. Lida Disclaimer: Lida Disclaimer: This electronic medical record was generated, in whole or in part, using a voice recognition dictation system. Departure Departure Impression: Primary Impression: Sinus headache Additional Impression: Chronic sinusitis Disposition: HOME / SELF CARE / HOMELESS Condition: STABLE Referrals: JAYCEE SAMUELS (PCP) Follow-up with your primary care physician in 24 to 48 hours OR FOLLOW UP WITH FAMILY MEDICINE: [address] [facility], [facility] [address] [place] [address] Patient Instructions: General Headache Without Cause, Sinusitis Additional Instructions: FOLLOW UP WITH ENT: FOR DEFINITIVE MANAGEMENT Otolaryngology [address] [facility], [address] [place] [address] color buffer [facility] [address] [address] EMERGENCY DEPARTMENT GENERAL DISCHARGE INSTRUCTIONS Thank you for coming to [facility] Emergency Department (ED) today and trusting us with you care. We trust that you had a positive experience in our Emergency Department. If you wish to speak to the department management, you may call the Director at [phone]. YOUR FOLLOW UP INSTRUCTIONS ARE FOLLOWS: 1. Do you have a private Doctor? If you do not have a private doctor, please ask for a resource list of physicians or clinics that may be able to assist you with follow up care. 2. The Emergency Physicain has interpreted your x-rays. The X-Ray specialist will also review them. If there is a change in the findings, you will be notified in 48 hours when at all possible. 3. A lab test or culture has been done, your results will be reviewed and you will be notified if you need a change in treatment. ADDITIONAL INSTRUCTIONS AND INFORMATION: 1. Your care today has been supervised by a physician who is specially trained in emergency care. Many problems require more than one evaluation for a complete diagnosis and treatment. We recommend that you schedule your follow up appointment as recommended to ensure complete treatment of you illness or injury. If you are unable to obtain follow up care and continue to have a problem, or if your condition worsens, we recommend that you return to the ED. 2. We are not able to safely determine your condition over the phone nor are we able to give sound medical advice over the phone. For these safety reasons, if you call for medical advice we will ask you to come to the ED for further evaluation. 3. If you have any questions regarding these discharge instructions please call the ED at [phone]. SAFETY INFORMATION: In the interest of safety, wellness, and injury prevention; we encourage you to wear your sealbelt, if you smoke; quite smoking, and we encourage family to use a protective helmet for bicycling and other sporting events that present an increased risk for head injury. IF YOUR SYMPTOMS WORSEN OR NEW SYMPTOMS DEVELOP, OR YOU HAVE CONCERNS ABOUT YOUR CONDITION; OR IF YOUR CONDITION WORSENS WHILE YOU ARE WAITING FOR YOUR FOLLOW UP APPOINTMENT; EITHER CONTACT YOUR PRIMARY CARE DOCTOR, THE PHYSICIAN WHOSE NAME AND NUMBER YOU WERE GIVEN, OR RETURN TO THE ED IMMEDIATELY. Scripts Amoxicillin/Potassium Clav (AUGMENTIN 875-125 TABLET) 1 Each Tablet 1 TAB PO Q12HR for 10 Days, #20 TAB Prov: FIDEL SHEN DO 01/28/21 FIDEL SHEN DO Jan 28, 2021 08:15
--- NOTE | 2021-01-28 08:33 | RAD ---
PQRS Compliance Statement: One or more of the following individualized dose reduction techniques were utilized for this examinat ion: 1. Automated exposure control 2. Adjustment of the mA and/or kV according to patient size 3. Use of iterative reconstruction technique CT head and maxillofacial without contrast 01/28/2021 8:04 AM INDICATION: Sinus pressure, nausea and vomiting. COMPARISON: None available TECHNIQUE: Multiple axial CT images of the head were obtained from skull base through the vertex with out intravenous contrast. Multiple axial CT images of the maxillofacial structures were obtained with out intravenous contrast. Coronal and sagittal reformats are provided. FINDINGS: Ventricles, sulci and basal cisterns are within normal limits. There is no hydrocephalus. Galvin-white matter differentiation is normal. There is no acute intracranial hemorrhage. There is no mass, mass e ffect or midline shift. Posterior fossa is normal in appearance. Osseous orbits are intact. Globes are spherical and contour. There is no lens dislocation. Extraocula r muscles are intact. No intraconal or extraconal mass is identified. Skull base is intact. Nasal bones are intact. There is near complete opacification of the right frontal sinus. There is mod erate mucosal thickening of the left frontal sinus. There is occlusion of the frontoethmoidal recess bilaterally. There is complete opacification of the ethmoid air cells with suspected osseous erosion. Bilateral maxillary antrostomy changes are suspected with infundibulectomy and uncinectomy. There is near complete opacification of the right maxillary sinus. Moderate mucosal thickening of the left ma xillary sinus with near complete opacification. Right sphenoid sinus is completely opacified. Moderat e mucosal thickening of the left maxillary sinus with opacification of the lateral recess of the sphe noid sinuses bilaterally. No erosive changes of the skull base. There is minimal periosteal thickenin g along the lateral aspect of the right maxillary sinus. No definite osseous erosions are identified. Pterygoid plates are intact. Temporomandibular joints are well aligned. Mastoid air cells are well aerated. Middle ear cavities ar e well aerated. Visualized nasopharynx and oropharynx are intact. Soft tissues are normal. Maxilla and mandible are intact. Periapical lucency is identified involving the left maxillary centra l and lateral incisor. IMPRESSION: 1. No acute intracranial hemorrhage. No findings to suggest vasogenic edema. 2. No acute fracture of the maxillofacial structures. There is advanced centimeters mucosal inflammat ory changes of the paranasal sinuses as described in detail above. No osseous erosion. Findings statu s post bilateral maxillary antrostomy, infundibulectomy and uncinectomy. 3. Periapical lucency identified involving the left maxillary central and lateral incisor. Considerat ion may be given for radicular cyst versus periapical abscess. Electronically signed by: Clotilde Zamora MD (01/28/2021 8:30 AM) [facility]
[2021-01-28] MEDS ORDERED: AMOX1TAB61 PO (09:56)
== END 2021-01-28 10:13 | disposition home or self-care (01) ==
LOC: ER 06:59
DX: J32.9 Chronic sinusitis, unspecified (principal); R51.9 Headache, unspecified; K21.9 Gastro-esophageal reflux disease without esophagitis; Z88.5 Allergy status to narcotic agent; Z88.6 Allergy status to analgesic agent; Z91.040 Latex allergy status; Z88.8 Allergy status to other drugs, medicaments and biological substances
CPT/HCPCS: 70450; 70486; 81025; 96361; 96374; 96375; 99285; J0780; J1100; J2765; J7030

== ENCOUNTER → 2021-04-14 | Outpatient (CLI) | payer OTHER, MEDICAID ==
[~2021-04-14] MED LIST changes: +AMOX1TAB61 PO
--- NOTE | 2021-04-14 15:47 | KCIC ---
EXAM: Pelvic sonogram. HISTORY: Menorrhagia. TECHNIQUE: Transabdominal and transvaginal sonographic imaging the pelvis was performed. COMPARISON: None. FINDINGS: The uterus measures 9.8 x 4.2 x 4.0 cm. The endometrial stripe measures 9.9 mm in thickness . The ovaries are normal in size and demonstrate normal blood flow. There is a 1.9 cm right ovarian c yst with internal septation. There is a 1.6 cm left ovarian cyst with slightly thickened wall. There is a focal hyperechoic lesion within the superior uterine fundus along the endometrium measuring 1.1 cm maximum dimension. There is a similar-appearing lesion measuring 1.0 cm within the mid aspect of t he endometrium. There are prominent bilateral adnexal vessels. There is no pelvic free fluid. IMPRESSION: 1. 1.1 cm and 1.0 cm slightly rounded hypoechoic lesions along the endometrial stripe. The possibilit y of submucosal fibroids or polyps is not excluded. Short-term follow-up a different phase in the men strual cycle or further evaluation with hysteroscopy or a saline sonohysterogram may be useful for ch aracterization. The endometrial stripe is normal in thickness for the premenopausal status of the pat ient. 2. Slightly complicated 1.6 cm left ovarian cyst with thickened wall and 1.9 cm right ovarian cyst wi th internal septation. Sonographic follow-up in 3 months can be performed to confirm resolution. 3. Prominent pelvic vessels. This can be seen with pelvic congestion. Correlate with symptomatology. Electronically signed by: Geraldine Rodriguez MD (04/14/2021 3:44 PM) [id number]
== END ==
LOC: KCIC US 14:43
PROVIDERS: ATTEND Family Medicine
DX: N83.202 Unspecified ovarian cyst, left side (principal); N83.201 Unspecified ovarian cyst, right side; N92.0 Excessive and frequent menstruation with regular cycle
CPT/HCPCS: 76856

== ENCOUNTER → 2021-05-01 | Outpatient (CLI) | payer OTHER, MEDICAID | LOC: SPEC 15:21 | PROVIDERS: ATTEND Obstetrics & Gynecology | DX: Z01.411 Encounter for gynecological examination (general) (routine) with abnormal findings (principal) | CPT/HCPCS: 87623; 88175 ==

== ENCOUNTER → 2021-06-09 | Outpatient (CLI) | payer OTHER, MEDICAID ==
[~2021-06-09] MED LIST changes: +CETI10TA74 PO; +FERR-36 PO; +IOHEXOL 180 MG/ML 10 ML VIAL. ONE; +PANT40TA77 PO; +methylPREDNISolone ACETATE 40 MG/ML VIAL. ONE; +methylPREDNISolone ACETATE 80 MG/ML VIAL. ONE
--- NOTE | 2021-06-09 10:26 | PDOC ---
Progress Note - Pain Clinic Date of Service: DOS: DATE: 06/09/21 TIME: 10:23 Diagnosis: Dx: Lumbar radiculopathy with lumbar degenerative disc disease History or Present Illness: HPI: 41-year-old female returns for follow-up status post lumbar epidural steroid injection last seen November 19, 2020 patient reports she did very well with 80% improvement ~last month to 2 months pain is been returning in the low back and now shifted more into the right lower extremity where previously it was in the left lower extremity now is in the right side which is a new finding patient reports is in her posterior gluteus posterior lateral thigh lateral anterior thigh anteromedial thigh symptoms in the medial lower leg as well as well as across the back right and left patient rates as a 9 on scale 10 is worse over the past week 8 on average 6 its least is an 8 today. Patient describes as aching and sharp shooting constant worse with walking standing initially she do much better with distance walking and household activities work activities and sleeping better patient reports now the pain is returning affecting all these areas fairly significantly. Patient reports no loss of motor function no bowel or bladder incontinence. Physical Exam: VS: Blood pressure is 115/78 pulse 75 respirations 18 temperature 97.9 F height is 5 foot 7 inches weight is 180 pounds PE: PHYSICAL EXAMINATION: GENERAL: The patient is awake, alert, oriented, appropriate, very pleasant in demeanor HEENT: Shows normocephalic, atraumatic. Extraocular movements are intact and symmetrical. Oral cavity: Mucous membranes moist and pink. NECK: Shows anterior throat supple without palpable lymphadenopathy noted. Swallow reflex symmetrical. CHEST: Shows normal on inspection. Breath sounds are clear bilaterally. HEART: Shows S1, S2 clear. No murmurs auscultated. ABDOMEN: Soft, nontender, nondistended. No palpable organomegaly is noted. BACK: Shows spine grossly in the midline. Normal-appearing cervical lordotic curvature. There is slightly increased thoracic kyphosis, some minor flattening of the lumbar lordotic curvature. Lumbar paraspinous muscles show symmetrical on inspection, on palpation shows some moderate tenderness diffusely throughout the upper, middle and lower distribution of the paraspinous muscles, but without specific trigger points, without radiation of pain. The patient has good r otational motion of the lumbar spine, both laterally as well as extension and flexion without significant difficulty. EXTREMITIES: Lower extremities show deep tendon reflexes 2+ in the patellar and tendo calcaneus tendons. Motor exam is 4 on a scale of 5 with right dorsiflexion, extension, quadriceps and hamstring flexion and 5/5 on the left. Peripheral pulses are warm posterior tibial. No peripheral edema is noted bilaterally. Lower extremities are warm and dry to touch, equal in color and appearance. SKIN: Shows warm and dry, good turgor. No edema. No sores, rashes or bruising throughout. Procedure: Procedure: Options were discussed with the patient. Patient's old chart was reviewed his current medication regimen updated current review of systems updated today as well. We will proceed with a lumbar epidural steroid injection today with fluo roscopic guidance. Risks were discussed including but not limited to: Bleeding, infection, possibility of epidural hematoma and subsequent neurological compromise, dural puncture, headaches, spinal cord and/or nerve damage, side effects of steroid medication, and poor results regarding pain control. Patient understands and wished to proceed. Patient return to the clinic in approximate 2 weeks for follow-up, was counseled return appointment, activity level, and side effects aware of. Medication Injected: Med Injected: Procedure is lumbar epidural steroid injection under local anesthetic using sterile prep and drape at the L4-5 level using C-arm fluoroscopic guidance in both AP and lateral views medications injected is 120 mg Depo-Medrol +10mL preservative-free normal saline and 2 mL contrast- condition at discharge is stable patient tolerated procedure well had no complications. Condition at Discharge: Condition at Discharge: Condition at discharge is stable, patient tolerated procedure well and had no complications. SANDRA MA MD Jun 09, 2021 10:26
--- NOTE | 2021-06-09 10:27 | PDOC4 ---
Procedure Note: ICD 10 Code: ICD 10 Code: M54.16 M51.36 Procedure Note: Patient was consented for lumbar epidural steroid injection with fluoroscopic guidance. Risks were discussed including but not limited to: Bleeding, infection, possibility of epidural hematoma and subsequent neurological compromise, dural puncture, headaches, spinal cord and/or nerve damage, side effects of steroid medication, and poor results regarding pain control. Patient understands and wished to proceed. Procedure is lumbar epidural steroid injection under local anesthetic using sterile prep and drape at the L4-5 level using C-arm fluoroscopic guidance in both AP and lateral views medications injected is 120 mg Depo-Medrol +10mL preservative-free normal saline and 2 mL contrast- condition at discharge is stable patient tolerated procedure well had no complications. SANDRA MA MD Jun 09, 2021 10:26
== END | disposition home or self-care (01) ==
LOC: PNCL 09:22
PROVIDERS: ATTEND Anesthesiology
DX: M51.16 Intervertebral disc disorders with radiculopathy, lumbar region (principal); Z79.899 Other long term (current) drug therapy; Z88.6 Allergy status to analgesic agent; Z91.040 Latex allergy status; Z88.8 Allergy status to other drugs, medicaments and biological substances
CPT/HCPCS: 62323; J1030; J1040; Q9965

== ENCOUNTER → 2021-06-12 | Outpatient (CLI) | payer OTHER, MEDICAID ==
[~2021-06-12] MED LIST changes: -IOHEXOL 180 MG/ML 10 ML VIAL. ONE; +RIVA15TA PO; -methylPREDNISolone ACETATE 40 MG/ML VIAL. ONE; -methylPREDNISolone ACETATE 80 MG/ML VIAL. ONE
== END ==
LOC: SPEC 13:49
PROVIDERS: ATTEND Obstetrics & Gynecology
DX: R87.612 Low grade squamous intraepithelial lesion on cytologic smear of cervix (LGSIL) (principal)
CPT/HCPCS: 88305

== ENCOUNTER 2021-07-14 07:10 | Emergency (ER) | payer OTHER, MEDICAID ==
[~2021-07-14] VITALS: Ht 170.2 cm; Wt 82.6 kg
[~2021-07-14 07:10] MED LIST changes: -RIVA15TA PO
--- NOTE | 2021-07-14 08:15 | PHYS DOC ---
Past Medical History Past Medical History: Bronchitis, GERD, Other Additional Past Medical Histor: CEREBRAL PALSY, slight scoliosis, chronic sinusitis, adhd,seasonal allergie Past Surgical History: Cholecystectomy, Tubal ligation, Other Additional Past Surgical Histo: GASTRIC SLEEVE, facial surg, sinus surg, R heel cord surg, lumbar surg Smoking Status: Never Smoker Alcohol Use: None Drug Use: None General Adult EDM: Chief Complaint: LOWER EXTREMITY SWELLING HPI: HPI: Patient is a 41-year-old female presenting for left lower extremity problems. This is an acute on chronic issue. States she has cerebral palsy comorbid conditions but reports 3 weeks ago being diagnosed with a superficial blood clot in her left lower extremity. States that she is allergic to aspirin and does not take any other anticoagulants, does admit she has been taking 400 mg ibuprofen 1-3 times daily since diagnosis. She has not followed up with her primary care physician for this. She reports working an overnight shift and having increased swelling and pain of her left lower extremity. When consulting with her primary care physician, it was advised she present for repeat evaluation. In the ER, admits increased pain, swelling, warmth to posterior aspect of left lower extremity otherwise has been at baseline health with no fever, shortness of breath, hemoptysis or other concerning signs or symptoms. She is also wanting her right nare evaluated as she had a recent bloody nose 2 days ago Review of Systems: Review of Systems: Fourteen body systems of review of systems have been reviewed. See HPI for pertinent positives and negative responses, other alvarado all other systems are negative, non-pertinent or non-contributory Heart Score: C/O Chest Pain: No Risk Factors: Risk Factors: DM, Current or recent (<one month) smoker, HTN, HLP, family history of CAD, obesity. Risk Scores: Score 0 - 3: 2.5% MACE over next 6 weeks - Discharge Home Score 4 - 6: 20.3% MACE over next 6 weeks - Admit for Clinical Observation Score 7 - 10: 72.7% MACE over next 6 weeks - Early Invasive Strategies Allergies: Allergies: Allergies Coded Allergies Type Severity Reaction Last Updated Verified aspirin Allergy Severe ANAPHYLAXIS 01/28/21 Yes adhesive tape Allergy Intermediate SWELLING HIVES 01/28/21 Yes latex Allergy Intermediate RASH 01/28/21 Yes hydrocodone Adverse Reaction Intermediate N/V 01/28/21 Yes gabapentin Adverse Reaction Mild WEIRD FEELING 01/28/21 Yes morphine Adverse Reaction Mild "WEIRD FEELING" 01/28/21 Yes Physical Exam: PE: Constitutional: Well developed, well nourished, no acute distress, non-toxic appearance. HENT: Normocephalic, atraumatic, bilateral external ears normal, oropharynx moist, no oral exudates, external nose unremarkable, right nare with remnants of dried blood with bilateral nasal turbinates dry in appearance Eyes: PERRLA, EOMI, conjunctiva normal, no discharge. Neck: Normal range of motion, no tenderness, supple, no stridor. Cardiovascular: Heart rate regular, sinus rhythm, no murmurs rubs or gallops Lungs & Thorax: Bilateral breath sounds clear to auscultation Abdomen: Bowel sounds normal, soft, no tenderness, no masses, no pulsatile masses. Nonsurgical abdomen, no peritoneal signs Skin: Warm, dry, no erythema, no rash. Back: No tenderness, no CVA tenderness. Extremities: No tenderness, no cyanosis, no clubbing, ROM intact, soft tissue compartments of bilateral lower extremities soft, trace pitting edema present to left lower extremity which is increased in circumference than contralateral limb with positive Homans' sign. 2+ DP and TP pulses to bilateral lower extremities. Cap refill less than 3 seconds in all distal toes, no concern for phlegmasia cerulea dolens Neurologic: Alert and oriented X 3, normal motor & sensory function, no focal deficits noted. Psychologic: Anxious affect and mood Current Patient Data: Labs: Laboratory Tests Test 07/14/21 09:18 White Blood Count 6.8 x10^3/uL Red Blood Count 4.20 x10^6/uL Hemoglobin 9.3 g/dL Hematocrit 30.0 % Mean Corpuscular Volume 71 fL Mean Corpuscular Hemoglobin 22 pg Mean Corpuscular Hemoglobin Concent 31 g/dL Red Cell Distribution Width 17.0 % Platelet Count 258 x10^3/uL Neutrophils (%) (Auto) 65 % Lymphocytes (%) (Auto) 24 % Monocytes (%) (Auto) 7 % Eosinophils (%) (Auto) 3 % Basophils (%) (Auto) 1 % Neutrophils # (Auto) 4.4 x10^3/uL Lymphocytes # (Auto) 1.6 x10^3/uL Monocytes # (Auto) 0.5 x10^3/uL Eosinophils # (Auto) 0.2 x10^3/uL Basophils # (Auto) 0.0 x10^3/uL Platelet Estimate Pending Sodium Level 142 mmol/L Potassium Level 3.9 mmol/L Chloride Level 105 mmol/L Carbon Dioxide Level 26 mmol/L Anion Gap 11 Blood Urea Nitrogen 9 mg/dL Creatinine 0.7 mg/dL Estimated GFR (Cockcroft-Gault) 93.2 Glucose Level 105 mg/dL Calcium Level 8.6 mg/dL Vital Signs: Vital Signs Date Time Temp Pulse Resp B/P (MAP) Pulse Ox O2 Delivery O2 Flow Rate FiO2 07/14/21 07:53 96.8 86 18 135/78 (97) 100 Room Air 96.8 EKG: EKG: [] Radiology/Procedures: Radiology/Procedures: EXAMINATION: Left lower extremity duplex venous ultrasound. TECHNIQUE: DVT protocol. Multiple sonographic images with color Doppler and waveform interrogation were performed of the left lower extremity veins with compression and augmentation maneuvers. INDICATION: 41 years Female, left leg pain and swelling FINDINGS: The left lower extremity veins from the groin to below the knee veins were examined with normal color-flow, compressibility and waveform demonstrated in the common femoral and superficial femoral veins. The popliteal vein demonstr ate nearly occlusive thrombus. There is also thrombosis in the catheter peroneal vein. The posterior tibial vein is patent. There is also thrombosis in the great saphenous vein. IMPRESSION: Positive for DVT involving the popliteal and peroneal arteries, nearly occlusive. There is also thrombosis in the great saphenous vein. Course & Med Decision Making: Course & Med Decision Making ABCs unremarkable HPI physical exam and comprehensive ER work-up concerning for left lower extremity DVT in an otherwise hemodynamically stable patient who worked to complete overnight shift without significant issues I contacted patient's primary care physician and reviewed diagnosis. Joint decision between myself, patient and PCP to start Xarelto with close outpatient follow-up previously scheduled for tomorrow which I feel is appropriate Patient educated on diagnosis of DVT, need for anticoagulation and need for close periodic outpatient follow-up and continued work-up that should include ru le out of coagulopathies etc. given unknown cause of patient's left lower extremity DVT without provocation Prior to ER departure patient reported increased pain. Lower extremity was evaluated that was still motor and sensory and neurovascularly intact without any concerns for need of hospitalization. I did discuss case with hospitalist who felt it was safe for patient to go home given findings Ultimately, patient was discharged home with new prescription and extensive education on Xarelto use and need for close PCP follow-up Lida Disclaimer: Lida Disclaimer: This electronic medical record was generated, in whole or in part, using a voice recognition dictation system. Departure Departure Impression: Primary Impression: Left leg DVT Disposition: HOME / SELF CARE / HOMELESS Condition: STABLE Referrals: JAYCEE SAUMELS (PCP) Additional Instructions: You were seen for a left lower extremity deep vein thrombosis. As disclosed, this finding was discussed at length with you and your primary care physician. We all decided on need for anticoagulation and joint decision was made to start Xarelto. You should take this medication, 15 mg twice daily with food for 21 days. At this time, your primary care physician will write a new prescription for 20 mg once daily with food for at least 3 months. You will require further outpatient evaluation to rule out any other potential provoking causes for your deep vein thrombosis in the near future. As disclosed, there is no monitoring for this medication, please just ensure you take the medication as prescribed. Return to the ED if you develop bloody stool, bloody vomit, if you hit your head, have chest pain, shortness of breath, or any other new or concerning symptoms. Even though I discussed case with your primary care physician this morning, it is still advised to contact today and confirm your previously established appointment in 48 hours time. It was a pleasure to take care of you and I wish you the best going forward Scripts Rivaroxaban (XARELTO) 15 Mg Tablet 1 TAB PO BID for 21 Days, #41 TAB 0 Refills Prov: KALI NUNEZ DO 07/14/21 KALI NUNEZ DO Jul 14, 2021 08:15
--- NOTE | 2021-07-14 09:03 | RAD ---
Site ID: [id number] EXAMINATION: Left lower extremity duplex venous ultrasound. TECHNIQUE: DVT protocol. Multiple sonographic images with color Doppler and waveform interrogation we re performed of the left lower extremity veins with compression and augmentation maneuvers. INDICATION: 41 years Female, left leg pain and swelling FINDINGS: The left lower extremity veins from the groin to below the knee veins were examined with no rmal color-flow, compressibility and waveform demonstrated in the common femoral and superficial femo ral veins. The popliteal vein demonstrate nearly occlusive thrombus. There is also thrombosis in the catheter peroneal vein. The posterior tibial vein is patent. There is also thrombosis in the great sa phenous vein. IMPRESSION: Positive for DVT involving the popliteal and peroneal arteries, nearly occlusive. There is also throm bosis in the great saphenous vein. Critical result: Findings of positive DVT were given to ER staff by medical technologist generalist performing the exam at 8:40 AM. RESULT CODE: (C) Electronically signed by: Miguelangel Burk MD (07/14/2021 9:01 AM) [id number]
[2021-07-14 09:29] LABS: BASO % 1 % (0-3); EOS # 0.2 x10^3/uL (0.0-0.7); EOS % 3 % (0-3); HEMOGLOBIN 9.3 g/dL (12.0-15.5); LYMPH # 1.6 x10^3/uL (1.0-4.8); LYMPH % 24 % (24-48); MEAN CORPUSCULAR HEMOGLOBIN 22 pg (25-35); MEAN CORPUSCULAR HGB CONC 31 g/dL (31-37); MEAN CORPUSCULAR VOLUME 71 fL (79-100); MONO # 0.5 x10^3/uL (0.0-1.1); MONO % 7 % (0-9); NEUT # 4.4 x10^3/uL (1.8-7.7); NEUT % 65 % (31-73); PLATELET COUNT 258 x10^3/uL (140-400); WHITE BLOOD COUNT 6.8 x10^3/uL (4.0-11.0)
[2021-07-14 09:36] LABS: CALCIUM 8.6 mg/dL (8.5-10.1); CREATININE 0.7 mg/dL (0.6-1.0); GFR 93.2; POTASSIUM 3.9 mmol/L (3.5-5.1)
[2021-07-14] MEDS ORDERED: RIVA15TA PO (10:16)
[2021-07-14 10:30] LABS: HYPOCHROMIA SLIGHT; MICROCYTOSIS SLIGHT; PLT ESTIMATE ADEQUATE (ADEQUATE); TEAR DROP CELLS OCC
[2021-07-14] MEDS ORDERED: RIVAROXABAN 15 MG TABLET. PO ONE (10:30)
[2021-07-14] MEDS ORDERED: oxyCODONE/APAP 7.5/325 1 TAB TABLET PO ONE (12:45)
[2021-07-14 13:33] VITALS: BP 103/65
== END 2021-07-14 11:25 | disposition home or self-care (01) ==
LOC: ER 07:10
DX: I82.402 Acute embolism and thrombosis of unspecified deep veins of left lower extremity (principal); K21.9 Gastro-esophageal reflux disease without esophagitis; F90.9 Attention-deficit hyperactivity disorder, unspecified type; Z90.49 Acquired absence of other specified parts of digestive tract; Z98.51 Tubal ligation status; Z88.6 Allergy status to analgesic agent; Z88.5 Allergy status to narcotic agent; Z91.040 Latex allergy status; Z88.8 Allergy status to other drugs, medicaments and biological substances
CPT/HCPCS: 36415; 80048; 85025; 93971; 99285-25

== ENCOUNTER → 2021-07-24 | Outpatient (CLI) | payer OTHER, MEDICAID ==
[2021-07-14 13:33] VITALS: BP 103/65
[~2021-07-24] MED LIST changes: +RIVA15TA PO
[2021-07-24 00:20] LABS: BASO # 0.1 x10^3/uL (0.0-0.2); BASO % 1 % (0-3); EOS # 0.5 x10^3/uL (0.0-0.7); EOS % 7 % (0-3); HEMATOCRIT 31.3 % (36.0-47.0); HEMOGLOBIN 9.6 g/dL (12.0-15.5); LYMPH # 2.3 x10^3/uL (1.0-4.8); LYMPH % 31 % (24-48); MEAN CORPUSCULAR HEMOGLOBIN 22 pg (25-35); MEAN CORPUSCULAR HGB CONC 31 g/dL (31-37); MEAN CORPUSCULAR VOLUME 71 fL (79-100); MONO # 0.5 x10^3/uL (0.0-1.1); MONO % 6 % (0-9); NEUT # 4.1 x10^3/uL (1.8-7.7); NEUT % 56 % (31-73); PLATELET COUNT 437 x10^3/uL (140-400); RED CELL DISTRIBUTION WIDTH 17.6 % (11.5-14.5); WHITE BLOOD COUNT 7.4 x10^3/uL (4.0-11.0)
[2021-07-24 04:19] LABS: ANISOCYTOSIS SLIGHT; HYPOCHROMIA MOD; MICROCYTOSIS MOD; PLT ESTIMATE INCREASED (ADEQUATE); POLYCHROMASIA SLIGHT
== END ==
LOC: LAB
PROVIDERS: ATTEND Family Medicine
DX: D50.9 Iron deficiency anemia, unspecified (principal)
CPT/HCPCS: 36415; 83540; 83550; 85025

== ENCOUNTER 2021-09-24 07:13 | Emergency (ER) | payer OTHER, MEDICAID ==
[~2021-09-24] VITALS: Ht 170.2 cm; Wt 84.5 kg
[2021-09-24 07:18] VITALS: BP 114/67
[2021-09-24] MEDS ORDERED: CEPH500C PO (08:16)
[2021-09-24] MEDS ORDERED: SULF1TAB24 PO (08:16)
--- NOTE | 2021-09-24 08:17 | PHYS DOC ---
Past Medical History Past Medical History: Bronchitis, GERD, Other Additional Past Medical Histor: CEREBRAL PALSY, slight scoliosis, chronic sinusitis, adhd,seasonal allergie Past Surgical History: Cholecystectomy, Tubal ligation, Other Additional Past Surgical Histo: GASTRIC SLEEVE, facial surg, sinus surg, R heel cord surg, lumbar surg Smoking Status: Never Smoker Alcohol Use: None Drug Use: None General Adult EDM: Chief Complaint: ABSCESS HPI: HPI: 41-year-old female PMH LLE DVT (on xarelto, control complication), presents to the ED with concerns for 2 abscesses on her back left thigh and one on her right thigh, have been intermittent for the past 6 to 8 months. States her proximal left thigh abscess popped Tuesday and her right posterior thigh popped today-both with purulent drainage. Is worried the distal posterior left thigh abscess needs to be drained. Concerned there's a track between the two abscess on her left thigh. 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 Patient has never tested positive for MRSA herself. Patient with no immunocompromise state, no daily prednisone use diabetes. Does have a history of bronchitis and takes Advair as needed. Review of Systems: Review of Systems: Constitutional: Denies fever or chills. [] Eyes: Denies change in visual acuity. [] HENT: Denies nasal congestion or sore throat. [] Respiratory: Denies cough or shortness of breath. [] Cardiovascular: Denies chest pain or edema. [] GI: Denies nausea or vomiting Musculoskeletal: Denies back pain or joint pain. [] Integument: Denies rash or diaphoresis Neurologic: Denies headache, focal weakness or sensory changes. [] Psychiatric: Denies depression or anxiety. [] Heart Score: C/O Chest Pain: No Risk Factors: Risk Factors: DM, Current or recent (<one month) smoker, HTN, HLP, family history of CAD, obesity. Risk Scores: Score 0 - 3: 2.5% MACE over next 6 weeks - Discharge Home Score 4 - 6: 20.3% MACE over next 6 weeks - Admit for Clinical Observation Score 7 - 10: 72.7% MACE over next 6 weeks - Early Invasive Strategies Allergies: Allergies: Allergies Coded Allergies Type Severity Reaction Last Updated Verified aspirin Allergy Severe ANAPHYLAXIS 01/28/21 Yes adhesive tape Allergy Intermediate SWELLING HIVES 01/28/21 Yes latex Allergy Intermediate RASH 01/28/21 Yes hydrocodone Adverse Reaction Intermediate N/V 01/28/21 Yes gabapentin Adverse Reaction Mild WEIRD FEELING 01/28/21 Yes morphine Adverse Reaction Mild "WEIRD FEELING" 01/28/21 Yes Physical Exam: PE: Constitutional: Well developed, well nourished, no acute distress, non-toxic appearance. HENT: Normocephalic, atraumatic, Eyes: EOMI, conjunctiva normal, no discharge. Neck: Normal range of motion, supple, Cardiovascular: S1/2 present, regular rhythm Lungs & Thorax: Speaking in full sentences, bilateral equal chest rise, no tachypnea or increased work of breathing Skin: Warm, dry, no erythema, no rash. [] Extremities: no unilateral swelling, left proximal area 3cm erythema with overlying dry skin-no fluctuance/minimal induration, left distal thigh 3cm erythema with palpable nodule (nodule < 1cm)-no fluctuance, cannot palpate a left posterior thigh sinus tract between the 2 abscesses, posterior right thigh with 2cm area of erythema and induration-3mm yellow pus on dressing Neurologic: Alert and oriented X 3, normal motor function, normal sensory function, no focal deficits noted. [] Psychologic: Affect normal, judgement normal, mood normal. [] Current Patient Data: Vital Signs: Vital Signs Date Time Temp Pulse Resp B/P (MAP) Pulse Ox O2 Delivery O2 Flow Rate FiO2 09/24/21 07:18 98.4 72 18 114/67 (83) 100 Room Air 98.4 EKG: EKG: [] Radiology/Procedures: Radiology/Procedures: [] Course & Med Decision Making: Course & Med Decision Making Pertinent Labs and Imaging studies reviewed. (See chart for details) Concern for 3 lesions over patient's posterior thighs concerning for healing abscesses-no fluctuant lesions to drain. I do suspect patient has MRSA. Will cover with Keflex and Bactrim and recommend wound check with her primary care physician within the next week. Pt understands that if a sinus tract has formed, she may benefit from surgery and dermatology referrals. Will discharge home with strict ED return precautions were given for fever, worsening pain or rash. Encouraged urgent outpatient follow-up with PMD. Life-threatening processes were considered but are low suspicion at this time, given history, physical exam and ED workup. Pt was educated on all prescription medications and adverse effects. All patient's questions were answered and pt was stable at time of discharge. Life/limb-threatening differential includes but is not limited to, trauma (fr acture, dislocation, laceration, compartment syndrome, tendon or ligament injury), neurovascular injury or deficitcva/tia, infection (osteomyelitis, abscess, cellulitis, septic arthritis, necrotizing fasciitis), deep vein thrombosis, renal/cardiac/liver disease, medication adverse effect, lymphedema/anasarca, vascular insufficiency or malignancy, I have spoken with the patient and/or caregivers. I explained the patient's condition, diagnoses and treatment plan based on the information available to me at this time. I have answered the patient and/or caregiver's questions and addressed any concerns. The patient and/or caregivers have a good understanding of patient's diagnosis, condition and treatment plan as can be expected at this point. Vital signs have been stable. Patient's condition is stable and appropriate for discharge from the emergency department. Patient will pursue further outpatient evaluation with primary care physician or other designated or consulting physician as outlined in the discharge instructions. The patient and/or caregivers are agreeable to this plan of care and follow-up instructions have been explained in detail. The patient and/or caregivers have received these instructions in written form and have expressed an understanding of the discharge instructions. The patient and/or caregivers are aware that any significant change of condition or worsening of symptoms should prompt immediate return to this or the closest emergency department or call to [email or web address] Hilton Disclaimer: Lida Disclaimer: This electronic medical record was generated, in whole or in part, using a voice recognition dictation system. Departure Departure Impression: Primary Impression: Abscess of left thigh Additional Impression: Abscess of right thigh Disposition: HOME / SELF CARE / HOMELESS Condition: STABLE Referrals: JAYCEE SAMUELS (PCP) follow up for wound check within 1 week Patient Instructions: Abscess Additional Instructions: EMERGENCY DEPARTMENT GENERAL DISCHARGE INSTRUCTIONS Thank you for coming to [facility] Emergency Department (ED) today and trusting us with you care. We trust that you had a positive experience in our Emergency Department. If you wish to speak to the department management, you may call the Director at [phone]. YOUR FOLLOW UP INSTRUCTIONS ARE FOLLOWS: 1. Do you have a private Doctor? If you do not have a private doctor, please ask for a resource list of physicians or clinics that may be able to assist you with follow up care. 2. The Emergency Physicain has interpreted your x-rays. The X-Ray specialist will also review them. If there is a change in the findings, you will be notified in 48 hours when at all possible. 3. A lab test or culture has been done, your results will be reviewed and you will be notified if you need a change in treatment. ADDITIONAL INSTRUCTIONS AND INFORMATION: 1. Your care today has been supervised by a physician who is specially trained in emergency care. Many problems require more than one evaluation for a complete diagnosis and treatment. We recommend that you schedule your follow up appointment as recommended to ensure complete treatment of you illness or injury. If you are unable to obtain follow up care and continue to have a problem, or if your condition worsens, we recommend that you return to the ED. 2. We are not able to safely determine your condition over the phone nor are we able to give sound medical advice over the phone. For these safety reasons, if you call for medical advice we will ask you to come to the ED for further evaluation. 3. If you have any questions regarding these discharge instructions please call the ED at [phone]. SAFETY INFORMATION: In the interest of safety, wellness, and injury prevention; we encourage you to wear your sealbelt, if you smoke; quite smoking, and we encourage family to use a protective helmet for bicycling and other sporting events that present an increased risk for head injury. IF YOUR SYMPTOMS WORSEN OR NEW SYMPTOMS DEVELOP, OR YOU HAVE CONCERNS ABOUT YOUR CONDITION; OR IF YOUR CONDITION WORSENS WHILE YOU ARE WAITING FOR YOUR FOLLOW UP APPOINTMENT; EITHER CONTACT YOUR PRIMARY CARE DOCTOR, THE PHYSICIAN WHOSE NAME AND NUMBER YOU WERE GIVEN, OR RETURN TO THE ED IMMEDIATELY. Scripts Sulfamethoxazole/Trimethoprim (BACTRIM DS TABLET) 1 Each Tablet 1 TAB PO BID for 10 Days, #20 TAB 0 Refills Prov: FIDEL SHEN DO 09/24/21 Cephalexin (KEFLEX) 500 Mg Capsule 1 CAP PO QID for 10 Days, #40 CAP Prov: FIDEL SHEN DO 09/24/21 FIDEL SHEN DO Sep 24, 2021 08:17
== END 2021-09-24 08:23 | disposition home or self-care (01) ==
LOC: ER 07:13
DX: L02.415 Cutaneous abscess of right lower limb (principal); L02.416 Cutaneous abscess of left lower limb; K21.9 Gastro-esophageal reflux disease without esophagitis; Z88.6 Allergy status to analgesic agent; Z91.040 Latex allergy status; Z88.5 Allergy status to narcotic agent; Z88.8 Allergy status to other drugs, medicaments and biological substances
CPT/HCPCS: 99283

== ENCOUNTER 2021-11-03 18:55 | Emergency (ER) | payer OTHER, MEDICAID ==
[~2021-11-03] VITALS: Ht 170.2 cm; Wt 84.0 kg
[~2021-11-03 18:55] MED LIST changes: +CEPH500C PO; +SULF1TAB24 PO
[2021-11-03 19:05] VITALS: BP 112/69
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
[2021-11-03] MEDS ORDERED: CYCL10TA19 PO (20:43)
== END 2021-11-03 21:00 | disposition home or self-care (01) ==
LOC: ER 18:55
DX: S13.9XXA Sprain of joints and ligaments of unspecified parts of neck, initial encounter (principal); M25.512 Pain in left shoulder; M25.511 Pain in right shoulder; K21.9 Gastro-esophageal reflux disease without esophagitis; Z88.6 Allergy status to analgesic agent; Z88.5 Allergy status to narcotic agent; Z91.040 Latex allergy status; Z88.8 Allergy status to other drugs, medicaments and biological substances; V49.49XA Driver injured in collision with other motor vehicles in traffic accident, initial encounter; Y92.488 Other paved roadways as the place of occurrence of the external cause; Y93.89 Activity, other specified; Y99.8 Other external cause status
CPT/HCPCS: 72125; 99284-25